=== PATIENT | male | born 1935 | race Caucasian/White ===

== ENCOUNTER 2017-05-17 05:16 | Day surgery (SDC) | payer OTHER ==
[~2017-05-17] VITALS: Ht 177.8 cm; Wt 72.6 kg
--- NOTE | ~2017-05-17 | EKG ---
[address] [address] ELECTROCARDIOGRAM REPORT Name: EDEL CARTER Room #: [facility].#: [id number] Admission: 05/17/17 Attend Phys: Kennedy Arora MD Discharge: 05/17/17 Date of : 35 Report #: [id number] THIS REPORT FOR: //name// [facility] Test Date: 2017-05-17 Test Time: 13:46:34 Pat Name: EDEL CARTER Department: Room: 150 3 Gender: M Incident Response Coordinator: CORY : 1935 Requested By: Kennedy Arora Order Number: [id number] MD: Maikel Cagle Measurements Intervals [place] Rate: 83 P: [place]: QRS: -40 QRSD: 90 T: 58 QT: 366 QTc: 430 Interpretive Statements Normal sinus rhythm Left axis deviation Borderline low voltage, extremity leads Baseline wander in lead(s) III,aVF,V1 No previous ECG available for comparison Electronically Signed On 05-18-2017 6:51:34 CDT by Maikel Cagle [email or web address] <ELECTRONICALLY SIGNED> By: Maikel Cagle MD 05/18/17 0651 134 Maikel Cagle MD /SANTIAGO
--- NOTE | ~2017-05-17 | O ---
[facility] [place] [address] OPERATIVE REPORT Name: EDEL CARTER Room #: [facility].#: [id number] Admission: 05/17/17 Attend Phys: Kennedy Arora MD Discharge: 05/17/17 Date of : 35 Report #: [id number] THIS REPORT FOR: //name// CC: FAM unknown Kennedy Arora DATE OF SERVICE: 05/17/2017 PREOPERATIVE DIAGNOSIS: The patient with a right facial/temporal lesion measuring slightly over 2 cm. POSTOPERATIVE DIAGNOSIS: The patient with a right facial/temporal lesion measuring slightly over 2 cm. PROCEDURES PERFORMED: Excision of right temporal lesion, facial/temporal lesion with primary closure. ANESTHESIA: IV sedation, local 0.25% Marcaine mixed with 1% lidocaine with epinephrine. A total of 16 mL of the mixture was injected. FINDINGS: The lesion does appear to be a ulcerative skin cancer margin at the 12 o'clock and 6 o'clock position, the closest margin were free. SURGEON: Kennedy Arora M.D. ESTIMATED BLOOD LOSS: 10 mL. PROCEDURE NOTE: With the right temporal area prepped with Chloraprep. This was tied off and draped in sterile fashion. Local anesthetic was injected around the lesion. An ellipse was drawn around this lesion. At the site at the closest part to the tumor at 12 o'clock and 6 o'clock, the ellipse was made in normal skin about 2 mm from the edge of the lesion. The skin was then excised down to the subcutaneous tissue and then removed. The skin along each edge was elevated. The skin was brought together with a mixture of 4-0 and 5-0 nylon, mainly 4-0 nylon. This was placed in interrupted fashion. There is some tension involved. Hemostasis does appear to be intact. Medially, there was a vessel that was bleeding. This was controlled with a 3-0 Vicryl suture. The patient did tolerate procedure well and was taken to recovery room. Antibiotic ointment was placed over the incision. By: [id number] Kennedy Arora MD /nt
--- NOTE | ~2017-05-17 | S ---
[facility] [address] [place] [facility] [place] [address] SURGICAL PATH RPT PROCEDURE Name: EDEL CARTER Room #: [facility].#: [id number] Admission: 05/17/17 Date of : 35 Discharge: 05/17/17 Report #: [id number] Path Case #: [id number] PATHOLOGY REPORT COLLECTION DATE: 05/17/2017 RECEIVED DATE: 05/17/2017 SUBMITTING PHYS: Dr. 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 (CLW:; 05/18/2017) PATHOLOGIST: Vaishali Beckham M.D. REPORT ELECTRONICALLY SIGNED BY: Vaishali Beckham M.D. DATE/TIME: 05/18/2017 15:37 * * * * * * * * * * * * GROSS PATHOLOGY: The specimen is received fresh from the OR, labeled, "Edel Carter and right temporal lesion stitch superior medial corner". It consists of an oriented ellipse of banegas-white skin and subcutaneous tissue measuring 6.0 x 2.7 cm. It is excised to a depth of 0.8 cm. The banegas-white skin is remarkable for a 2.1 x 2.0 cm irregularly shaped, focally ulcerated, slightly raised banegas crusted lesion. The tag designating the superior medial corner is further clarified as 2:[address] Arora which corresponds to a 3:00 tip. The margins are inked as follows: 9:00-12:00-3:00 - blue, 3:00-6:00 - black, and 6:00-9:00- red. The specimen is serially sectioned and inked two central portions to include the 12:00, 6:00 and deep margins are submitted for one frozen section. The frozen section is then submitted as A1FS. The remaining 9:00 half is entirely submitted as A2. The remaining 3:00 half is entirely submitted is as A3. (CLW:pit; 05/18/2017) FROZEN SECTION DIAGNOSIS: A1FS: "Right temporal lesion": - Squamoproliferative lesion; margins (12:00, 6:00 and deep) free of invasive tumor. The case is discussed with Dr. Arora in the operating room and a written report is placed in the patient's chart. [address] [address] SURGICAL PATH RPT PROCEDURE Name: EDEL CARTER Room #: [facility]#: [id number] Admission: 05/17/17 Date of : 35 Discharge: 05/17/17 Report #: [id number] Path Case #: [id number] (CLW:pit; 05/18/2017) Frozen section performed by Dr. Stan Beckham at [address] , [place] [address] CLINICAL HISTORY: Right temporal lesion INITIAL CPT CODE(S): A; 13328, 20514 Professional services performed by [facility] at [facility] [address] [place] [address] Technical services performed by [facility] at [address] [place] [address], [address], [place] [address]. [facility] [address] [place] [address] PHONE: [phone] DIRECTOR: Wero Dumont M.D. * * * END OF REPORT * * *
[~2017-05-17 05:16] MED LIST: AEROBIKA1 EACH MC; ALEVE220 MG PO; CALCIUM + VITA1 EACH PO; DUONEB 2.5-0.5 M3 ML INH; FLONASE 0.05%50 MCG NASAL; PATANOL5 ML OPHTHALMIC; SINGULAIR 10 MG10 M1 PO; SUDAFED 12 HOU120 MG PO; SYMBICORT160 MCG/4. INH; ZYRTEC10 M4 PO
[2017-05-17 14:09] LABS: HEMATOCRIT 46.9 % (42.0-52.0); HEMOGLOBIN 15.9 gm/dL (14.0-18.0)
[2017-05-17 14:15] VITALS: BP 133/58
[2017-05-17 16:10] VITALS: BP 133/58
== END 2017-05-17 17:10 | disposition home or self-care (01) ==
LOC: OR 05:16 → TBA 05:16 → OR 09:01
PROVIDERS: Surgery
DX: C44.329 Squamous cell carcinoma of skin of other parts of face (principal); J43.9 Emphysema, unspecified; F32.89 Other specified depressive episodes; F41.8 Other specified anxiety disorders; Z85.46 Personal history of malignant neoplasm of prostate
CPT/HCPCS: 50010; 50101; 50386; 50403; 56524; 56526; 62110; 62900; 70005